=== PATIENT | male | born 1985 | race Caucasian/White ===

== ENCOUNTER 2023-07-18 16:29 | Emergency (ER) | payer SELFPAY ==
[2023-07-18 16:49] VITALS: BP 127/64; PULSE 56; RESP 16; TEMP 98.1; BMI 26.5
[2023-07-18] MEDS ORDERED: DEXAMETHASONE SOD PHOSPHATE 10 MG/1 ML VIAL IM ONE (18:15)
[2023-07-18] MEDS ORDERED: DEXAMETHASONE SOD PHOSPHATE 10 MG/1 ML VIAL ONE (18:17)
== END 2023-07-18 18:23 | disposition home or self-care (01) ==
LOC: JERFT 16:29
PROC: 3E023GC Introduction of Other Therapeutic Substance into Muscle, Percutaneous Approach (ICD-10-PCS; principal; 2023-07-18)
DX: R21 Rash and other nonspecific skin eruption (principal); L24.9 Irritant contact dermatitis, unspecified cause
CPT/HCPCS: 99284-25; J1100